=== PATIENT | female | born 1975 | race Caucasian/White ===

== ENCOUNTER 2021-11-08 12:22 | Emergency (ER) | payer MEDICAID ==
[~2021-11-08] VITALS: Ht 157.5 cm; Wt 54.3 kg
[2021-11-08 12:28] VITALS: BP 146/91
[2021-11-08] MEDS ORDERED: THIAMINE HCL 100MG TABLET PO ONE (14:15)
[2021-11-08 16:02] LABS: CLARITY URINE CLEAR (CLEAR); COLOR URINE YELLOW (YELLOW); KETONES URINE 1+ (NEGATIVE); LEUKOCYTE ESTERASE URINE TRACE (NEGATIVE); NITRITE URINE POSITIVE (NEGATIVE); OCCULT BLOOD URINE NEGATIVE (NEGATIVE); PH URINE 7.5 (4.5-8.0); PROTEIN URINE TRACE (NEGATIVE); SPECIFIC GRAVITY URINE 1.015 (1.005-1.030)
[2021-11-08 16:19] LABS: *BARBITURATES SCREEN URINE NEGATIVE (NEGATIVE); *BENZODIAZEPINES SCREEN URINE NEGATIVE (NEGATIVE); *COCAINE SCREEN URINE NEGATIVE (NEGATIVE); METHADONE URINE SCREEN NEGATIVE (NEGATIVE); OPIATES URINE SCREEN NEGATIVE (NEGATIVE); PHENCYCLIDINE URINE SCREEN NEGATIVE (NEGATIVE)
[2021-11-08 16:32] LABS: *AMPHETAMINES SCREEN URINE PRESUMTIVE POSITIVE (NEGATIVE); CANNABINOID URINE SCREEN PRESUMTIVE POSITIVE (NEGATIVE)
[2021-11-08] MEDS ORDERED: CEPHALEXIN 250MG CAPSULE PO NR (16:45)
[2021-11-08 16:46] LABS: CHLORIDE 101 mEq/L (98-107)
[2021-11-08 16:47] LABS: BASOPHILS % 0.5 % (0.0-2.0); HEMATOCRIT. 27.1 % (36.0-48.0); HEMOGLOBIN. 8.5 g/dL (12.0-16.0); LYMPHOCYTES % 13.6 % (20.0-50.0); MEAN CORPUSCULAR VOLUME 85.9 fL (81.0-99.0); MONOCYTES % 3.6 % (2.0-8.0); NEUTROPHILS % 81.3 % (40.0-76.0); RED BLOOD CELL COUNT 3.16 mill/uL (4.2-5.4); RED CELL DISTRIBUTION WIDTH 25.4 % (11.6-14.6)
[2021-11-08 16:54] LABS: CREATINE KINASE 192 IU/L (26-192); ETHANOL BLOOD 56 mg/dL
[2021-11-08 17:00] LABS: HCG SCREEN NEGATIVE
[2021-11-08] MEDS ORDERED: POTASSIUM CHLORIDE 20MEQ TABLET SR PO SCH (17:15)
[2021-11-08] MEDS ORDERED: CEPH500C2 MT (17:54)
[2021-11-08] MEDS ORDERED: THIA50TA12 MT (17:54)
[2021-11-08] MEDS ORDERED: POTA-205 MT (17:54)
[2021-11-08 18:50] LABS: MEAN PLATELET VOLUME 8.6 fl (7.4-10.4)
== END 2021-11-08 18:33 | disposition home or self-care (01) ==
LOC: ER 12:22
DX: K70.9 Alcoholic liver disease, unspecified (principal); E87.6 Hypokalemia; E83.51 Hypocalcemia; R00.0 Tachycardia, unspecified; N39.0 Urinary tract infection, site not specified; M25.571 Pain in right ankle and joints of right foot; D64.9 Anemia, unspecified; F10.20 Alcohol dependence, uncomplicated; Y90.2 Blood alcohol level of 40-59 mg/100 ml; F12.90 Cannabis use, unspecified, uncomplicated; F15.90 Other stimulant use, unspecified, uncomplicated; Z71.41 Alcohol abuse counseling and surveillance of alcoholic
CPT/HCPCS: 36415; 73610; 80053; 80305; 80307; 80320; 80329; 81003; 81025; 82140; 82550; 82962; 84703; 85025; 93005; 99285; G0480

== ENCOUNTER 2023-04-05 15:26 | Emergency (ER) | payer MEDICAID ==
[~2023-04-05] VITALS: Ht 157.5 cm; Wt 65.0 kg
[~2023-04-05 15:26] MED LIST: CEPH500C2 MT; POTA-205 MT; THIA50TA12 MT
[2023-04-05 16:08] VITALS: BP 120/66; PULSE 111; RESP 18; TEMP 97.9; O2SAT 99
[2023-04-05 18:33] LABS: CLARITY URINE CLEAR (CLEAR); COLOR URINE DARK YELLOW (YELLOW); GLUCOSE URINE NEGATIVE (NEGATIVE); KETONES URINE TRACE (NEGATIVE); LEUKOCYTE ESTERASE URINE TRACE (NEGATIVE); NITRITE URINE NEGATIVE (NEGATIVE); OCCULT BLOOD URINE NEGATIVE (NEGATIVE); PH URINE 7.5 (4.5-8.0); PROTEIN URINE TRACE (NEGATIVE); SPECIFIC GRAVITY URINE 1.023 (1.005-1.030)
[2023-04-05 18:41] LABS: *AMPHETAMINES SCREEN URINE PRESUMPTIVE POSITIVE (NEGATIVE); *BARBITURATES SCREEN URINE NEGATIVE (NEGATIVE); *BENZODIAZEPINES SCREEN URINE NEGATIVE (NEGATIVE); *COCAINE SCREEN URINE NEGATIVE (NEGATIVE); CANNABINOID URINE SCREEN PRESUMPTIVE POSITIVE (NEGATIVE); ECSTASY MDMA SCREEN URINE CONF.TEST INDICATED (NEGATIVE); METHADONE URINE SCREEN Neg (NEGATIVE); OPIATES URINE SCREEN NEGATIVE (NEGATIVE); PHENCYCLIDINE URINE SCREEN NEGATIVE (NEGATIVE)
[2023-04-05 18:52] LABS: BACTERIA URINE NONE SEEN; RBC URINE 0-2 /hpf (0-2); SQUAMOUS EPITHELIAL CELL URINE 2+ /lpf (RARE/1+); WBC URINE 0-2 /hpf (0-2)
[2023-04-05 21:26] LABS: BASOPHILS % 0.7 % (0.0-2.0); EOSINOPHILS % 3.2 % (0.0-5.0); HEMATOCRIT. 30.3 % (36.0-48.0); HEMOGLOBIN. 9.2 g/dL (12.0-16.0); LYMPHOCYTES % 24.3 % (20.0-50.0); MEAN CORPUSCULAR HEMOGLOBIN 23.3 pg (28.0-32.0); MEAN CORPUSCULAR HGB CONC 30.4 g/dL (31.0-37.0); MEAN CORPUSCULAR VOLUME 76.5 fL (81.0-99.0); MEAN PLATELET VOLUME 8.6 fl (7.4-10.4); MONOCYTES % 13.4 % (2.0-8.0); NEUTROPHILS % 58.4 % (40.0-76.0); PLATELET 126 x1000/uL (130-400); RED BLOOD CELL COUNT 3.96 mill/uL (4.2-5.4); RED CELL DISTRIBUTION WIDTH 25.6 % (11.6-14.6); WHITE BLOOD COUNT 7.7 x1000/uL (4.5-11.0)
[2023-04-05 21:27] LABS: ADD RBC MORPHOLOGY YES; DIFFERENTIAL COMMENT 1
[2023-04-05 21:38] LABS: HCG SCREEN NEGATIVE
[2023-04-05 21:43] LABS: PLATELET ESTIMATE NORMAL
[2023-04-05 21:47] LABS: ALANINE AMINOTRANSFERASE 56 IU/L (10-49); ASPARTATE AMINOTRANSFERASE 109 IU/L (<34); BILIRUBIN TOTAL 0.5 mg/dL (0.1-1.0); CALCIUM 8.5 mg/dL (8.7-10.4); CARBON DIOXIDE 23 mEq/L (21-32); CHLORIDE 107 mEq/L (98-107); CREATININE 0.6 mg/dL (0.6-1.0); ETHANOL BLOOD 301 mg/dL (<10); GLUCOSE 138 mg/dL (70-105); POTASSIUM 3.7 mEq/L (3.5-5.1); PROTEIN TOTAL 7.9 g/dL (6.0-8.3); SODIUM 140 mEq/L (136-145); UREA NITROGEN BLOOD 11 mg/dL (9-23)
[2023-04-05] MEDS ORDERED: ACETAMINOPHEN 325MG TABLET PO NR (22:00)
[2023-04-05] MEDS ORDERED: CHLORDIAZEPOXIDE 25MG CAPSULE PO ONE (22:15)
[2023-04-05] MEDS ORDERED: KETOROLAC 60MG/2ML VIAL IM ONE (22:15)
[2023-04-05] MEDS ORDERED: LEVETIRACETAM 500MG TABLET PO ONE (22:15)
[2023-04-06] MEDS ORDERED: PROT40 MT (00:06)
[2023-04-06] MEDS ORDERED: LEVE1000 MT (00:07)
== END 2023-04-06 00:10 | disposition home or self-care (01) ==
LOC: ER 15:26
DX: G40.909 Epilepsy, unspecified, not intractable, without status epilepticus (principal); J45.909 Unspecified asthma, uncomplicated; Z90.49 Acquired absence of other specified parts of digestive tract
CPT/HCPCS: 80053; 80305; 81003; 80320; 84703; 83690; 85025; 36415; 96372; 99284; J1885; G0480